=== PATIENT | male | born 1975 | race Asian ===

== ENCOUNTER 2016-10-05 13:15 | Inpatient (IN) | payer MEDICARE, OTHER ==
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
[2016-10-05] MEDS ORDERED: SERT100T9 PO (16:57)
[2016-10-05] MEDS ORDERED: HYDR-656 PO (16:57)
[2016-10-05] MEDS ORDERED: SODI126M NS (16:57)
[2016-10-05] MEDS ORDERED: LURA120T PO (16:57)
[2016-10-05] MEDS ORDERED: MONT10TA20 PO (16:57)
[2016-10-05] MEDS ORDERED: BENZ2TAB7 PO ×2 (16:57)
[2016-10-05] MEDS ORDERED: KLO1T PO (16:57)
[2016-10-05] MEDS ORDERED: POLY1DRO OP (16:57)
[2016-10-05] MEDS ORDERED: Alum-Mag Hydrox-Simeth 30 mL Suspension PO PRN (18:00)
[2016-10-05] MEDS ORDERED: Benzocaine-Menthol Lozenge 2/Pkg PO PRN (18:00)
[2016-10-05] MEDS ORDERED: Magnesium Hydroxide 10 mL Oral Concentration PO PRN (18:00)
--- NOTE | 2016-10-05 18:30 | NUR ---
Observations 0700 to 1900 Pt arrived on it at 1410 with mother. Pt is pleasant, cooperative, anxious about being in unit. Pt completed admit paperwork and then ate dinner and visited with mother. After mother left pt paced hallways and is currently watching TV. Pt seems very particular in requests --eg. wants exactly 350 calories of yogurt when he takes his medication. Pt very curious about doctor and all staff in the unit, asking many questions. Pt ate 50% of dinner and was observed every 15 minutes as ordered.
[2016-10-05] MEDS: hydrOXYzine Pamoate 25 mg Capsule PO PRN (21:08)
--- NOTE | 2016-10-06 06:43 | NUR ---
Sleep Adequate sleep with over 7.5 hours. No noted distress or awakening per protocol checks.
[2016-10-06] MEDS: Artificial Tears 15 mL Ophthalmic Solution BOTH_EYES PRN (09:18)
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
[2016-10-06 15:36] VITALS: BP 109/53; PULSE 80; RESP 16
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
--- NOTE | 2016-10-06 19:46 | NUR ---
Observations 0900 to 2130 Pt affect and mood was hyperverbal, paranoid, confused and internally preoccupied. Pt was pleasant, polite and cooperative. Pt speech and eye contact was ok. Pt attended group and unit activities. Pt went out on patio with staff to get some fresh air. Pt maintained behavior control throughout the shift. Pt attended meals in the D.R. and ate 90% of breakfast, 100% of lunch and 100% of dinner. Pt has a good appetite. Pt visited with his mom and it appeared to go well. Pt watched movie and visited with peers during free time in the evening. Pt was observed every 15 minutes throughout the shift as ordered.
[2016-10-06] MEDS: hydrOXYzine Pamoate 25 mg Capsule PO PRN (20:51)
[2016-10-06] MEDS: Divalproex (QD) 500 mg ER24 Tablet PO SCH (20:51)
[2016-10-07] MEDS: hydrOXYzine Pamoate 25 mg Capsule PO PRN ×2 (04:23→21:13)
--- NOTE | 2016-10-07 04:38 | NUR ---
OBSERVATIONS 1900 TO 0700 Pt attempted to socialize with peers, has some difficulty interpreting social cues, sarcasm, etc. Pt was pleasant with staff, but preoccupied with his care. Pt seemed restless and generally preoccupied. Pt attended wrap-up group, stated that he accomplished his goal of reading something but that he "needs to do more studying" and that he still has a lot of questions. Pt rated mood 7/10. Pt was noted asleep at 2215, awoke at 0145 for a short time and again at 0400 for 45 minutes. Q15 safety checks maintained as directed.
--- NOTE | 2016-10-07 06:26 | NUR ---
Nursing notes:reservoir engineering advisor Patient noted to be asleep at beginning of shift. Patient awake briefly at 01:45 to 02:00, then appears asleep until 04:30. Patient awake and complains of feeling restless. Patient received Vistaril 25 mg po and returned to room. Patient has been unable to get back to sleep, appears preoccupied. Patient requests to use email to contact his professor at school. Patient was advised to speak to nurse case manager for assistance in contacting his school. Patient continues with fragmented sleep.
[2016-10-07] MEDS: Divalproex (QD) 500 mg ER24 Tablet PO SCH ×3 (08:05→20:49)
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
--- NOTE | 2016-10-07 20:36 | NUR ---
Obs Dayshift Pt is often up at the window asking to talk w/ staff, have staff call his mom, has requests, etc. Pt is child like, confused, delusional, paranoid. Pt stated that he doesn't trust people when they won't say where they are from, stated that his sister is out to try and kill him, harassing him and that he would like to press charges then asks for staff opinion. Pt becomes slightly frustrated and short w/ staff when explained that we don't have an opinion regarding his sisters relationship and what he should do about it. Pt was pressured and anxious about sending emails to his school and scholarship people. Pt did go w/ staff to send emails and requested a lower class load. Pt later was second guessing himself and wanting to go back on to send them all more info, wanting to check his phone repeatedly to make sure it was turned off, etc. Pt visited w/ Mom, and then went to bed. Pt is hopeful to DC Wed. and have our staff assist him in getting a new Dr. because he believes that they tried to kill him w/ meds. Good ADL's, Good meals
--- NOTE | 2016-10-07 21:23 | PROG NOTE ---
[address] [address] PROGRESS NOTE PATIENT: ЕКАТЕРИНА JORDAN : 1975 MR#: [id number] ADMIT: 10/05/2016 JOB ID: [id number] DATE: 10/07/2016 CHIEF COMPLAINT: "I would really like to get out of here. My classes start on ." This is per patient report. HISTORY OF PRESENT ILLNESS: As stated above, the patient did meet with myself at length requesting multiple times throughout the course of conversation whether I have actually read through his chart, reviewed documentation. He also wrote me a specific letter detailing his life history. The patient continues to be quite obsessive and, at times, somewhat irrational. The patient did indicate that he initiated his doses of Depakote as instructed by Dr. Bales. He appeared to be much calmer per staff report and able to redirect. He reports that he has had no evidence of side effects from the medication interventions at this time. He remains on doses of Zoloft at 100 mg daily and is scheduled to initiate Depakote ER 1000 mg q.h.s. on the . He has also remained on Klonopin 1 mg q.h.s., Cogentin 1 mg q.h.s., and Latuda 120 mg at 5 p.m. OBJECTIVE/MENTAL STATUS EXAM: He was quite obsessive, tangential. He was otherwise casually dressed. He maintained good eye contact throughout. His speech could be pressured at times. His mood was euphoric. His affect is labile. His thought process shows evidence of racing thoughts, some random flight of ideas. He is quite tangential. His thought content: He denied any evidence of current suicidal or homicidal ideation. He did admit to difficulties with sense of paranoia at times and beliefs in the caste system. He was alert, oriented to time and place. He denied any difficulties with suicidal or homicidal ideation as noted. His insight and judgment are deemed poor. PHYSICAL EXAM: Vital signs of current: Temperature is 36.5, pulse 80, respirations 16, BP 109/53. MEDICATION REVIEW: Includes Depakote 500 mg b.i.d. with schedule to increase this on the 3rd to 1000 mg q.h.s., Zoloft 100 mg daily, Singulair 110 mg daily, Klonopin 1 mg q.h.s., Latuda 120 mg at 5 p.m. ASSESSMENT: AXIS I: 1. Schizoaffective disorder, depressed type. 2. Schizophrenia, undifferentiated type by history. 3. Major depressive disorder, recurrent type, non psychotic. AXIS II: Rule out obsessive compulsive personality features. AXIS III: Deferred. AXIS IV: Stressors are moderate. AXIS V: Global Assessment of Functioning current 25. PLANS: 1. Recommendations for continuation of all medications noted. 2. Recommended followup with both medication management and individual therapy at alternative care providers. The patient previously was seen at [facility] and has refused a return. 3. Recommendations for discharge on Friday with the intent of patient returning back to school at [employer]. He has indicated that he will more likely decline current enrollment in mathematics skills based and switch over to elective due to the stress factor.
--- NOTE | 2016-10-08 01:49 | NUR ---
Observations 1900 to 0700 Pt affect remains the same as in previous nights here. Pt was in his room when my shift started and remained there for the night. Pt did not attend wrap up group. Pt first appeared asleep at 20:45 and was observed every 15 minutes through the night as directed.
[2016-10-08] MEDS: hydrOXYzine Pamoate 25 mg Capsule PO PRN (02:59)
[2016-10-08] MEDS: Sodium Chloride NAS 45 mL Spray NASAL PRN ×2 (03:16→07:55)
--- NOTE | 2016-10-08 05:34 | NUR ---
Nursing note NOC Appears to be asleep after awake x2 for prn sleep med. Requested sleep aids x2 (Ambien 5 mg at 0153; Vistaril 25 mg at 0259). Slept totatl of 6+ hours overall. Pleasant demeanor.
[2016-10-08] MEDS: Artificial Tears 15 mL Ophthalmic Solution BOTH_EYES PRN (07:55)
[2016-10-08 10:00] VITALS: BP 121/73; PULSE 83; RESP 17
--- NOTE | 2016-10-08 12:58 | PCM.DIMED ---
Discharge Instructions Date of Service Oct 08, 2016 Dates of Hospitalization Oct 05, 2016 at 16:14 Discharge Diagnosis Discharge Diagnosis Schizoaffective DO bipolar type Obssessive Compulsive Personality features Activity No restrictions Yousif Hodge DO Oct 08, 2016 12:58
[2016-10-08] MEDS ORDERED: HYDR-656 PO (13:02)
[2016-10-08] MEDS ORDERED: BENZ1TAB7 PO (13:02)
[2016-10-08] MEDS ORDERED: ZLP5T PO (13:02)
[2016-10-08] MEDS ORDERED: SERT100T9 PO (13:02)
[2016-10-08] MEDS ORDERED: DIVA500T14 PO (13:02)
[2016-10-08] MEDS ORDERED: KLO1T PO (13:02)
--- NOTE | 2016-10-08 13:35 | NUR ---
Nursing Note [id number] Behavior S/O: Pt has been on the phone most of the day dealing with college classes & doctor appointments. Pt took all scheduled medications plus used saline nose & eye drops. Pt cooperative & pleasant. Conversation tracking clear & organized with normal rate & rhythm. Pt able to do own ADL's. Pt is restless. A: Pt appropriate on unit. P: Provide supportive environment. Monitor medications & effects.
--- NOTE | 2016-10-08 16:41 | NUR ---
Mat Sewer./ c.m. S.:"I want to go home. I can take care of myself and my mother's distress." O.: met with pt. to discuss his desire for discharge. Pt. denied SI/HI. He felt positive about going home. He scheduled follow up appt. for meds with Dr. Marce MD in [facility] ([phone]). He refused to go back to [facility] in [facility]. Pt.'s mother called and conventional underwriter had a long phone conversation with her. Mother was upset about pt.'s discharge because she wasn't taking care of, and she believed that pt. won't be able to take care of self. Computer Technical Support Specialist explained pt.'s mother discharge procedure and pt.'s status as vol. Pt. asked conventional underwriter to call for a taxi home that he was going to pay for by himself. A.: pt. is cooperative, pleasant, social with peers and staff. P.: monitor behavior, check Safety plan, taxi scheduled at 16:15; follow care plan.
--- NOTE | 2016-10-08 17:24 | NUR ---
DC Notes- Pt left facility 1615, via cab, meds [facility]ed to [facility], safety plan finished
[2016-10-08] MEDS ORDERED: Divalproex (QD) 500 mg ER24 Tablet PO SCH (21:00)
--- NOTE | 2016-10-09 00:10 | DIS ---
[address] [address] DISCHARGE SUMMARY PATIENT: ЕКАТЕРИНА JORDAN : 1975 MR#: [id number] ADMIT: 10/05/2016 JOB ID: [id number] DIS: 10/08/2016 ADMISSION DIAGNOSES: AXIS I: 1. Schizoaffective disorder, depressed type. 2. Schizophrenia, undifferentiated type. 3. History of major depression. AXIS II: Deferred. AXIS III: None. AXIS IV: Moderate. AXIS V: Global Assessment of Functioning current 35. DISCHARGE DIAGNOSES: AXIS I: 1. Schizoaffective disorder, depressed type. 2. Major depressive disorder, recurrent. 3. Generalized anxiety disorder. AXIS II: Obsessive compulsive personality features. AXIS III: None. AXIS IV: Stressors are noticed including chronic mental health issues, transition in life, limited social support. AXIS V: Global Assessment of Functioning current 40. REASON FOR ADMISSION: The patient is a 41-year-old male with a noted previous history of schizophrenia versus schizoaffective disorder. During the course of hospitalization, the patient was agreeable to initiate doses of Depakote eventually titrated to 1000 mg q.h.s., in combinations with doses of Latuda. He did show significant difficulties with helplessness, and often attempted to interact with his mother throughout the course of hospitalization. He reportedly had a significant history of struggles with social and emotional reciprocity, and it was felt that the patient did have characteristic features of autism spectrum. However, no definitive diagnoses. Throughout the course of hospitalization, the patient verbalized no evidence of recurrent themes of suicidal or homicidal ideation. He did admit to a significant strong belief system and feelings of paranoia and delusions that his older sister was basically tracking and following his finances and trying to obtain his inheritance. He did readily identify that he would like to have a larger social support group; however, struggles with individuals in general. It was felt the patient would benefit from continuation of medication interventions and outpatient supportive therapies. On the day of discharge, the patient indicated that he needs to return back to [employer] to drop his classes prior to enrollment so as not to be charged. CONDITION AT TIME OF DISCHARGE: The patient's mood and affect were stable. He denied any evidence of current suicidal, homicidal ideation. No evidence of active hallucinations, delusions. He was alert, oriented to person, place, time, situation. Attention and concentration intact. Memory intact in the short term, emt intermediate, recent. Insight and judgment were fair. DISCHARGE PLANS: Include: 1. Continuation of Depakote ER 1000 mg q.h.s., one month supply, no refills. Reason for usage mood stabilizer. 2. Continuation of Latuda 120 mg q.h.s. with meals. No prescription was given. 3. Continuation of Zoloft 100 mg daily, one month supply, no refills. Reason for usage antidepressant. 4. Continuation of hydroxyzine 25 mg t.i.d. p.r.n., one month supply, no refills. 5. Continuation of Klonopin 1 mg, one tablet q.h.s., one month supply, no refills. Reason for usage antianxiety. 6. Follow up with Dr. Hidalgo at 8:45 on October 23, for intake in [place] for ongoing psychiatric management.
== END 2016-10-08 16:15 | disposition home or self-care (01) | DRG 885 ==
LOC: MHC 16:14
PROVIDERS: ADMIT Psychiatry & Neurology Psychiatry; ATTEND Psychiatry & Neurology Psychiatry
DX: F25.1 Schizoaffective disorder, depressive type (principal); F33.9 Major depressive disorder, recurrent, unspecified; F41.1 Generalized anxiety disorder; F42.8 Other obsessive-compulsive disorder